=== PATIENT | female | born 1970 | race Caucasian/White ===

== ENCOUNTER 2024-03-24 08:37 | Emergency (ER) | payer BC, SELFPAY ==
[2024-03-24] VITALS (9 sets, daily range): BP systolic 138–145; BP diastolic 87–109; PULSE 59–72; RESP 18; TEMP 36.4; O2SAT 95–97; BMI 26.6
--- NOTE | 2024-03-24 09:07 | ED.GENADULT ---
HPI - General Adult General Chief complaint: Unspecified Complaint, Adult Stated complaint: tingling arms, nausea, sweating Time Seen by Provider: 03/24/24 08:41 History of Present Illness HPI narrative: Has been feeling icky for months. This morning 1hr ago, pt had an increase of symptoms of: SOB, nausea, sweating and has had ringing in ears in the past. Denies CP and any other pain. Currently symptoms have resolved. 53-year-old man presenting to the emergency department with concern of sudden onset of not even really a tightness in his chest is really hard to describe but accompanied with some nausea and diaphoresis and tingling in his extremities, hands, particularly the upper left greater than right. He is right handed. He apparently said to his spouse that it was as if he is having a panic attack, at least how she describes them. Historically very healthy. Was noted recently to have a rather elevated blood pressure on check at the pharmacy with over 100 in the diastolic as reported. Has had some other episodes of this tingling as well. Bilateral tinnitus over the last year Mentions a number of times they had been having a good deal of work related stress. 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 Has gained about 15 lb over the last couple of months which he attributes to being stressed. Normally would be doing more yoga and generally physically active and eating better. Had been experiencing some headaches which have improved though still present apparently, since adoption of some glasses to make it easier for him to look at screen for longer period time. Related Data Allergies Allergy/AdvReac Type Severity Reaction Status Date / Time No Known Drug Allergies Allergy Verified 03/24/24 10:28 Review of Systems Status of ROS: Reports: 6 or more systems reviewed and unremarkable except as noted in History and below [facility] Social History Smoking Status: Never smoker Do you use any of these nicotine containing products: None How often do you have a drink containing alcohol: monthly or less How many standard drinks containing alcohol do you have on a typical day: 1 or 2 How often do you have six or more drinks on one occasion: Never AUDIT-C Alcohol total score: 1 Non-prescribed substance use: denies use Exam Narrative: Exam Narrative: Tilts his head little bit is if might be having a hard time hearing me though there is a hum in the room otherwise that makes it difficult. Very pleasant. NAD otherwise. Skin is warm and dry. Head is atraumatic. Cranial nerves 2-12 intact. Pupils are brisk and equal. Ear canals/TMs unremarkable. No sensory loss otherwise. Well-perfused with good pulses peripherally. No peripheral edema. Lungs are clear. Heart in regular rate and rhythm. Const: Vital Signs, click to edit/add: Vital Signs - 24 hr 03/24/24 08:51 03/24/24 08:51 03/24/24 09:35 Temperature 97.6 F Pulse Rate Pulse Rate [Pulse Oximeter] 72 Respiratory Rate 18 Blood Pressure Blood Pressure [Le ft Upper Arm] 139/87 Blood Pressure [Ri ght Upper Arm] 145/109 H Pulse Oximetry 95 96 Oxygen Delivery Me thod Room Air 03/24/24 09:45 03/24/24 10:00 03/24/24 10:15 Temperature Pulse Rate 59 L 63 64 Pulse Rate [Pulse Oximeter] Respiratory Rate Blood Pressure Blood Pressure [Le ft Upper Arm] Blood Pressure [Ri ght Upper Arm] Pulse Oximetry 97 96 96 Oxygen Delivery Me thod 03/24/24 10:27 03/24/24 10:30 03/24/24 10:45 Temperature Pulse Rate 60 69 68 Pulse Rate [Pulse Oximeter] Respiratory Rate Blood Pressure 138/95 H Blood Pressure [Le ft Upper Arm] Blood Pressure [Ri ght Upper Arm] Pulse Oximetry 96 97 96 Oxygen Delivery Me thod 03/24/24 11:00 Temperature Pulse Rate 60 Pulse Rate [Pulse Oximeter] Respiratory Rate Blood Pressure Blood Pressure [Le ft Upper Arm] Blood Pressure [Ri ght Upper Arm] Pulse Oximetry 96 Oxygen Delivery Me thod Documenting provider has reviewed patient's vital signs: yes Course Vital Signs Vital signs: Initial Vital Signs Temperature 97.6 F 03/24/24 08:51 Temperature Source Temporal Artery Scan 03/24/24 08:51 Pulse Rate 72 03/24/24 08:51 Pulse Rhythm Regular 03/24/24 08:51 Respiratory Rate 18 03/24/24 08:51 Respiratory Effort Normal, Spontaneous, Non-Labored 03/24/24 08:51 Respiratory Depth Normal 03/24/24 08:51 Blood Pressure 145/109 H 03/24/24 08:51 Blood Pressure Mean 121 H 03/24/24 08:51 Blood Pressure Position Sitting 03/24/24 08:51 Pulse Oximetry 95 03/24/24 08:51 Oxygen Delivery Method Room Air 03/24/24 08:51 Vital Signs Temperature 97.6 F 03/24/24 08:51 Pulse Rate 72 03/24/24 08:51 Respiratory Rate 18 03/24/24 08:51 Blood Pressure 145/109 H 03/24/24 08:51 Pulse Oximetry 95 03/24/24 08:51 Oxygen Delivery Method Room Air 03/24/24 08:51 Temperature 97.6 F 03/24/24 08:51 Pulse Rate 60 03/24/24 11:00 Respiratory Rate 18 03/24/24 08:51 Blood Pressure 138/95 H 03/24/24 10:27 Pulse Oximetry 96 03/24/24 11:00 Oxygen Delivery Method Room Air 03/24/24 08:51 Medical Decision Making MDM Narrative Medical decision making narrative: I think given the constellation of symptoms described this is more likely related to emotional stress from work. Tinnitus may or may not be related. Will monitor for potential arrhythmia and look for any evidence of cardiac injury/ischemia, heart failure. Score very low for pulmonary embolus. Labs are overall reassuring. No further events on monitor. Overall stable/improved. See patient discharge plan for further discussion Lab Data Lab results reviewed: Yes I reviewed the patient's lab results Labs: Lab Results 03/24/24 03/24/24 Range/Units 09:22 11:00 WBC 4.48 L (4.50-11.00) K/uL RBC 4.68 (4.00-5.20) m/uL Hgb 15.2 (12.0-16.0) gm/dL Hct 45.2 (33.0-51.0) % MCV 97 (80-100) fL MCH 33 (26-34) pg MCHC 34 (32-36) gm/dL RDW Coeff of Nirav 11.9 (11.5-15.5) % Plt Count 187 (140-440) K/uL Neut % (Auto) 43.6 (42.0-72.0) % Lymph % (Auto) 36.8 (20-44) % Bullitt % (Auto) 8.7 (0.0-11.0) % Eos % (Auto) 9.8 H (0.0-7.0) % Baso % (Auto) 0.9 (0.0-3.0) % Neut # (Auto) 2.00 (1.7-7.0) K/uL Lymph # (Auto) 1.60 (0.90-2.90) K/uL Bullitt # (Auto) 0.40 (0.00-0.90) K/UL Eos # (Auto) 0.40 (0.00-0.50) K/uL Baso # (Auto) 0.00 (0.00-0.30) K/uL Abs Immat Gran (auto) 0.00 (0.00-0.30) K/uL Imm/Tot Granulo (auto) 0.2 % Sodium 139 (135-149) mmol/L Potassium 4.4 (3.6-5.1) mmol/L Chloride 107 (96-114) mmol/L Carbon Dioxide 24 (20-32) mmol/L Anion Gap 8 (7-15) mEq/L BUN 15 (7-30) mg/dL Creatinine 0.8 (0.5-1.5) mg/dL Estimated Creat Clear 81.10 Estimated GFR 88 ml/min Glucose 99 (60-115) mg/dL Calcium 9.6 (8.4-10.6) mg/dL Magnesium 1.9 (1.5-2.6) mg/dL Troponin I < 0.01 L (0.01-0.04) ng/mL C-Reactive Protein < 0.5 L (0.5-1.0) mg/dL NT-Pro-B Natriuret Pep < 20 pg/mL POC Troponin I 0.00 L 0.00 L (0.01-0.04) ng/ml ECG Data Attestation: I personally reviewed and interpreted this ECG as follows: (Normal sinus rhythm rate of 64. Do not appreciate acute ischemic change) Discharge Plan Discharge Clinical Impression: Tinnitus, Malaise, Elevated blood pressure reading Patient Disposition: Home, Self-Care Condition: Stable Additional Instructions: It appears your blood pressure readings are little bit elevated; particularly the low number. This possibly is related to the tinnitus you seem to be describing although I think less likely. I would be seen for a more thorough evaluation of tinnitus. Return to yoga if you can. Try to get quality and regular sleep. Get outside. These episodes may be primary tachycardia or some sort or some form of a panic attack? Would discuss this further with your primary care provider. Might also warrant a cardiac stress test for thoroughness? Follow Up/Referrals: Provider,Not a Local [Primary Care Provider] - Stand Alone Forms: [employer] Info Instructions
[2024-03-24 09:31] LABS: Basophils Percent Auto 0.9 % (0.0-3.0); Eosinophils Percent Auto 9.8 % (0.0-7.0); Hematocrit 45.2 % (33.0-51.0); Hemoglobin* 15.2 gm/dL (12.0-16.0); Immature Granulocytes Pct Auto 0.2 %; Lymphocytes Percent Auto 36.8 % (20-44); Mean Corpuscular HGB Conc 34 gm/dL (32-36); Mean Corpuscular Hemoglobin 33 pg (26-34); Mean Corpuscular Volume 97 fL (80-100); Monocytes Percent Auto 8.7 % (0.0-11.0); Neutrophils Percent Auto 43.6 % (42.0-72.0); Platelet Count* 187 K/uL (140-440); RDW Coefficient of Variation % 11.9 % (11.5-15.5); Red Blood Count 4.68 m/uL (4.00-5.20); White Blood Count* 4.48 K/uL (4.50-11.00)
[2024-03-24 09:38] LABS: Slide Review Reflex No
[2024-03-24 09:45] LABS: Chloride* 107 mmol/L (96-114); Potassium* 4.4 mmol/L (3.6-5.1); Sodium* 139 mmol/L (135-149)
[2024-03-24 09:47] LABS: Creatinine* 0.8 mg/dL (0.5-1.5); Estimated Glomerular Filt Rate 88 ml/min
[2024-03-24 09:48] LABS: Anion Gap 8 mEq/L (7-15); Blood Urea Nitrogen* 15 mg/dL (7-30); Calcium* 9.6 mg/dL (8.4-10.6); Carbon Dioxide* 24 mmol/L (20-32); Glucose* 99 mg/dL (60-115); Magnesium* 1.9 mg/dL (1.5-2.6)
[2024-03-24 09:56] LABS: C Reactive Protein* < 0.5 mg/dL (0.5-1.0)
[2024-03-24 10:05] LABS: NT Pro B Type NatriureticPept* < 20 pg/mL; Troponin I* < 0.01 ng/mL (0.01-0.04)
== END 2024-03-24 11:25 | disposition home or self-care (01) ==
PROVIDERS: Emergency Provider Family Medicine
DX: H93.13 Tinnitus, bilateral (principal); R03.0 Elevated blood-pressure reading, without diagnosis of hypertension
CPT/HCPCS: 36415; 80048; 83735; 83880; 84484; 85025; 86140; 93005; 99283; 99284